=== PATIENT | male | born 1975 | race Caucasian/White ===

== ENCOUNTER 2017-12-14 16:16 | Emergency (ER) | payer SELFPAY ==
[2017-12-14 16:31] VITALS: BP 129/80; PULSE 78; RESP 20; TEMP 36.9; O2SAT 97; BMI 26.6
--- NOTE | 2017-12-14 16:46 | HMH.EDUTC ---
[facility] [place] Clinical Impression: URI (upper respiratory infection) Qualifiers: URI type: unspecified URI Qualified Code(s): J06.9 - Acute upper respiratory infection, unspecified Disposition: Home, Self-Care Condition on Discharge: Good Instructions: DI for Cough -- Adult, Sore Throat, Sinusitis, DI for Sinusitis Additional Instructions: * Monitor Temp. Tylenol and/or Ibuprofen as needed. ER if fever is no less than 101 despite alternating Tylenol and Ibuprofen * Encourage fluids, water, Gatorade, powerade, pedialyte if /toddler/or child * Warm salt water gargles for throat irritation *Warm fluids *Sore throat lozenges *Sleep elevated *humidifier or vaporizer Lots of rest Increase fluids, water, Gatorade, powerade *Flonase 2 sprays each nostril daily but may take 2-3 days to notice improvement with it Follow up IMMEDIATELY for new or worsening of symptoms OR no noticeable improvement over the next 48-72 hours. 911 immediately for any life threatening symptoms such as chest pain or difficulty breathing Prescriptions: Azithromycin [Z-Elia 250mg Tab] 250 mg PO UD DOSE PK #6 tab Benzonatate [Tessalon Perle 100mg Cap] 100 mg PO TID #30 cap Fluticasone Propionate [Flonase 50mcg nasal spray 16gm] 2 spr NS DAILY #1 bottle predniSONE [Prednisone 20mg Tab] 20 mg PO BID #10 tab Referrals: Markus Burton MD [Primary Care Provider] - As needed Time of Disposition: 16:58 Medical Decision Making - Medical Records Medical records reviewed: Yes: I reviewed the patient's medical records. - Alireza Inquiry Pt receiving controlled substance: No Alireza was queried for this patient: No Vital Signs: 12/14/17 16:31 Temperature 98.4 F Temperature Source Temporal Artery Scan Pulse Rate [Brachial] 78 Respiratory Rate 20 Blood Pressure [Right Arm] 129/80 Blood Pressure Mean [Right Arm] 96 Blood Pressure Position [Right Arm] Sitting 02 Sat by Pulse Oximetry 97 Oxygen Delivery Method Room Air [facility] [place] - General Stated complaint: Lung pain Time Seen by Provider: 12/14/17 16:46 Mode of Arrival: Ambulatory Source of Information: Patient Limitations: No Limitations Description of Symptoms (Recalled from Triage Doc. by RN): COUGH AND CONGSETION X 1 WEEK, CAUSING PAIN IN BACK HEENT Symptoms (Recalled from RN notes): No Resp Symptoms (Recalled from RN notes): Yes Skin Symptoms (Recalled from RN notes): No MS Symptoms (Recalled from RN notes): No Functional Status (Recalled from RN notes): NA - History of Present Illness Provider Complaint: Patient state that he has been having cough, nasal drainage and sore throat State that feels like something is running down the back of his throat State that when he lays down cough is worse State that he has been coughing so much that he feels like his lungs are sore - Related Data Previous Rx's Medication Instructions Recorded Azithromycin [Z-Elia 250mg Tab] 250 mg PO UD DOSE PK #6 tab 12/14/17 Benzonatate [Tessalon Perle 100mg 100 mg PO TID #30 cap 12/14/17 Cap] Fluticasone Propionate [Flonase 2 spr NS DAILY #1 bottle 12/14/17 50mcg nasal spray 16gm] predniSONE [Prednisone 20mg 20 mg PO BID #10 tab 12/14/17 Tab] Allergies Allergy/AdvReac Type Severity Reaction Status Date / Time No Known Allergies Allergy Verified 12/14/17 16:33 - Worker's Comp Is this a Worker's Comp case?: No [facility] History I have reviewed the patient's past medical history: Yes - Social History Smoking Status: Current every day smoker Tobacco Type: cigarettes Alcohol Intake: never - Psychiatric History Expresses thoughts of harming self/others: None Suicide Plan Description: No Plan ROS Obtained: Yes All systems reviewed & no additional complaints - Constitutional Constitutional: Denies fever(s) - ENT Ears, Nose, Mouth, and Throat: Reports sinus pain, Reports sinus pressure, Reports sore throat - Respiratory Respiratory: Yes chest congestion, Yes cough, No
--- NOTE | 2017-12-14 16:53 | ED_ITS ---
[facility] – [place] Disposition Clinical Impression: URI (upper respiratory infection) Qualifiers: URI type: unspecified URI Qualified Code(s): J06.9 - Acute upper respiratory infection, unspecified Disposition: Home, Self-Care Condition on Discharge: Good Instructions: DI for Cough -- Adult, Sore Throat, Sinusitis, DI for Sinusitis Additional Instructions: * Monitor Temp. Tylenol and/or Ibuprofen as needed. ER if fever is no less than 101 despite alternating Tylenol and Ibuprofen * Encourage fluids, water, Gatorade, powerade, pedialyte if /toddler/or child * Warm salt water gargles for throat irritation *Warm fluids *Sore throat lozenges *Sleep elevated *humidifier or vaporizer Lots of rest Increase fluids, water, Gatorade, powerade *Flonase 2 sprays each nostril daily but may take 2-3 days to notice improvement with it Follow up IMMEDIATELY for new or worsening of symptoms OR no noticeable improvement over the next 48-72 hours. 911 immediately for any life threatening symptoms such as chest pain or difficulty breathing Prescriptions: Azithromycin [Z-Elia 250mg Tab] 250 mg PO UD DOSE PK #6 tab Benzonatate [Tessalon Perle 100mg Cap] 100 mg PO TID #30 cap Fluticasone Propionate [Flonase 50mcg nasal spray 16gm] 2 spr NS DAILY #1 bottle predniSONE [Prednisone 20mg Tab] 20 mg PO BID #10 tab Referrals: Markus Burton MD [Primary Care Provider] - As needed Time of Disposition: 16:58 Medical Decision Making - Medical Records Medical records reviewed: Yes: I reviewed the patient's medical records. - Alireza Inquiry Pt receiving controlled substance: No lAireza was queried for this patient: No Vital Signs: 12/14/17 16:31 Temperature 98.4 F Temperature Source Temporal Artery Scan Pulse Rate [Brachial] 78 Respiratory Rate 20 Blood Pressure [Right Arm] 129/80 Blood Pressure Mean [Right Arm] 96 Blood Pressure Position [Right Arm] Sitting 02 Sat by Pulse Oximetry 97 Oxygen Delivery Method Room Air [facility] [place] HPI - General Stated complaint: Lung pain Time Seen by Provider: 12/14/17 16:46 Mode of Arrival: Ambulatory Source of Information: Patient Limitations: No Limitations Description of Symptoms (Recalled from Triage Doc. by RN): COUGH AND CONGSETION X 1 WEEK, CAUSING PAIN IN BACK HEENT Symptoms (Recalled from RN notes): No Resp Symptoms (Recalled from RN notes): Yes Skin Symptoms (Recalled from RN notes): No MS Symptoms (Recalled from RN notes): No Functional Status (Recalled from RN notes): NA - History of Present Illness Provider Complaint: Patient state that he has been having cough, nasal drainage and sore throat State that feels like something is running down the back of his throat State that when he lays down cough is worse State that he has been coughing so much that he feels like his lungs are sore - Related Data Previous Rx's Medication Instructions Recorded Azithromycin [Z-Elia 250mg Tab] 250 mg PO UD DOSE PK #6 tab 12/14/17 Benzonatate [Tessalon Perle 100mg 100 mg PO TID #30 cap 12/14/17 Cap] Fluticasone Propionate [Flonase 2 spr NS DAILY #1 bottle 12/14/17 50mcg nasal spray 16gm] predniSONE [Prednisone 20mg 20 mg PO BID #10 tab 12/14/17 Tab] Allergies Allergy/AdvReac Type Severity Reaction Status Date / Time No Known Allergies Allergy Verified 12/14/17 16:33 - Worker's Comp Is this a
[2017-12-14 16:56] VITALS: BP 129/80; PULSE 78; RESP 20; TEMP 36.9; O2SAT 97
== END 2017-12-14 16:59 | disposition home or self-care (01) ==
PROVIDERS: Emergency Provider Nurse Practitioner; Family Provider Family Medicine; PCP Family Medicine
DX: J06.9 Acute upper respiratory infection, unspecified (principal); F17.210 Nicotine dependence, cigarettes, uncomplicated
CPT/HCPCS: 99201

== ENCOUNTER → 2018-03-16 10:16 | Outpatient (POV) | payer SELFPAY ==
[2018-03-16 11:02] VITALS: BP 133/80; PULSE 56; RESP 18; O2SAT 98; BMI 27.6
--- NOTE | 2018-03-16 11:44 | HMH.PAINSOAP ---
[facility] Pain Management SOAP Note Subjective:: Patient is a 42-year-old white male who presents today for follow-up. Patient had 2 more epidural steroid injections last year and has done extremely well. Patient states he got 80-90% relief for 4 months. Patient then lost his insurance and was unable to return. Patient is interested in restarting this. Patient is not on any anticoagulation therapy. Patient is continuing a home stretching program. Patient tried gabapentin with side effects and discontinued it. He rates his pain an 8 out of 10 today. ROS General: no recent weight change, no fever, no sleep disturbances Respiratory: no cough, no shortness of air, no recurring pulmonary infections Cardiovascular/Peripheral Vascular: No chest pain, No palpitations, no edema, no shortness of breath. Gastrointestinal: no incontinence, normal bowel movements reported Genitourinary: no incontinence Musculoskeletal: Back pain, leg pain Psychiatric: normal mood/ affect Neurological: [denies weakness in extremities], [denies balance issues] Objective:: Physical Exam General: Alert and oriented x3, no acute distress, pleasant and cooperative, [on room air] Lungs: Resps E/U, Symmetrical chest expansion, Eyes: PERRL Musculoskeletal: Flexion and extension of lumbar spine somewhat guarded secondary to pain, deep tendon reflexes normal, strength in upper and lower extremities [5/5], antalgic gait noted, positive straight leg raise test bilaterally at 30? Neurological: speech clear, metal fabricating shop helper equal, no gross sensory deficits Assessment:: Degenerative disc disease of the lumbar spine with radiculopathy Plan:: We will schedule an L4-L5 lumbar epidural steroid injection. Given the efficacy of this in the past I believe it would be beneficial. Patient doing well with his home stretching exercises. Follow-up with the patient after the injection. This note was dictated using voice recognition software and may contain errors or omissions
--- NOTE | 2018-03-16 11:47 | P.CONS_ITS ---
[facility] Pain Management SOAP Note Subjective:: Patient is a 42-year-old white male who presents today for follow-up. Patient had 2 more epidural steroid injections last year and has done extremely well. Patient states he got 80-90% relief for 4 months. Patient then lost his insurance and was unable to return. Patient is interested in restarting this. Patient is not on any anticoagulation therapy. Patient is continuing a home stretching program. Patient tried gabapentin with side effects and discontinued it. He rates his pain an 8 out of 10 today. ROS General: no recent weight change, no fever, no sleep disturbances Respiratory: no cough, no shortness of air, no recurring pulmonary infections Cardiovascular/Peripheral Vascular: No chest pain, No palpitations, no edema, no shortness of breath. Gastrointestinal: no incontinence, normal bowel movements reported Genitourinary: no incontinence Musculoskeletal: Back pain, leg pain Psychiatric: normal mood/ affect Neurological: [denies weakness in extremities], [denies balance issues] Objective:: Physical Exam General: Alert and oriented x3, no acute distress, pleasant and cooperative, [on room air] Lungs: Resps E/U, Symmetrical chest expansion, Eyes: PERRL Musculoskeletal: Flexion and extension of lumbar spine somewhat guarded second shaji to pain, deep tendon reflexes normal, strength in upper and lower extremities [5/5], antalgic gait noted, positive straight leg raise test bilaterally at 30? Neurological: speech clear, web content manager equal, no gross sensory deficits Assessment:: Degenerative disc disease of the lumbar spine with radiculopathy Plan:: We will schedule an L4-L5 lumbar epidural steroid injection. Given the efficacy of this in the past I believe it would be beneficial. Patient doing well with his home stretching exercises. Follow-up with the patient after the injection. This note was dictated using voice recognition software and may contain errors or omissions
== END ==
PROVIDERS: Family Provider Family Medicine; PCP Family Medicine; Visit Provider Clinical Nurse Specialist Family Health
DX: M51.16 Intervertebral disc disorders with radiculopathy, lumbar region (principal)
CPT/HCPCS: 99213

== ENCOUNTER 2020-01-10 13:21 | Emergency (ER) | payer MEDICAID, SELFPAY ==
[2020-01-10 13:46] VITALS: BP 148/90; PULSE 73; RESP 20; TEMP 36.8; O2SAT 98; BMI 26.6
--- NOTE | 2020-01-10 14:08 | HMH.EDUTC ---
[facility] – [place] Disposition Clinical Impression: URI (upper respiratory infection) Qualifiers: URI type: unspecified URI Qualified Code(s): J06.9 - Acute upper respiratory infection, unspecified Disposition: Home, Self-Care Condition on Discharge: Good Instructions: Sore Throat, DI for Cough -- Adult, DI for Fever (Symptom) -- Adult, Preventing the Spread of Coronavirus Discharge Instructions Additional Instructions: *Monitor Temp, Over the counter Motrin or Tylenol as directed/as needed Tylenol every 4 hours and Motrin every 6 hours (as long as your family doctor has told you that you can take it) for fever or pain. and straight to ER if unable to lower temp less than 101.0 after medication given *Warm salt water gargles may help to soothe the throat *Throat Lozenges *Warm fluids like tea with honey may help to soothe the throat *Sleep elevated *Humidifier/Vaporizer *Flonase 2 sprays in each nostril daily but be aware that it may take 2-3 days before you notice improvement You was tested for COVID19, you was given a handout with instructions to follow..Please make sure to follow instructions to help prevent the spread of COVID19 Call back to the [facility] for your results of your COVID test they typically take 48 hours however may be back in 24 you may call the [facility] tomorrow after 1pm to see if your test results are back and if not Call on Follow up IMMEDIATELY for new or worsening symptoms or no Noticeable improvement over the next 48-72 hours. 911 for difficulty breathing or swallowing Prescriptions: Albuterol Sulfate [Proventil-HFA 90mcg/puff Inh] 1 - 2 puffs IH Q4HP PRN #1 inh PRN Reason: Shortness Of Breath Transmission Status: Received by [facility] # Fluticasone Propionate [Flonase 50mcg nasal spray 16gm] 1 - 2 spr NS DAILY #1 bottle Transmission Status: Received by [facility] # Benzonatate [Tessalon Perle 100mg Cap*] 100 mg PO TID PRN #15 cap PRN Reason: Cough Transmission Status: Received by [facility] # Azithromycin [Z-Elia 250mg Tab] 250 mg PO DIRECTED #6 tab Transmission Status: Received by [facility] #[id number] Referrals: Markus Burton MD [Primary Care Provider] - As needed Forms: Work/School Release Time of Disposition: 14:12 Medical Decision Making - Alireza Inquiry Pt receiving controlled substance: No Alireza was queried for this patient: No Vital Signs: 01/10/20 13:46 Temperature 98.2 F Temperature Source Oral Pulse Rate [Left Brachial] 73 Respiratory Rate 20 Blood Pressure [Left Arm] 148/90 H Blood Pressure Mean [Left Arm] 109 Blood Pressure Source [Left Arm] Automatic Cuff Blood Pressure Position [Left Arm] Sitting 02 Sat by Pulse Oximetry 98 Oxygen Delivery Method Room Air Orders (Tests/Meds): ORDERS Category Date Time Status SARS-CoV-2, [facility] Stat [facility] 01/10/20 13:50 Received [facility] [place] HPI - General Stated complaint: wants covid test Time Seen by Provider: 01/10/20 13:50 Mode of Arrival: Ambulatory Source of Information: Patient Limitations: No Limitations Description of Symptoms (Recalled from Triage Doc. by RN): C/O COUGH AND CONGESTION X 2 DAYS. 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 States that several of the factories he has been too recently had an outbreak of COVID19 States that he started having nasal congestion, sore throat and cough along with low grade fever so they made him come and get checked - Related Data Home Medications Medication Instructions Recorded Confirmed hydrOXYzine HCL [Hydroxyzine HCl] 25 mg PO HS 01/10/20 01/10/20 Previous Rx's Medication In
[2020-01-10 14:16] VITALS: BP 148/90; PULSE 73; RESP 20; TEMP 36.8; O2SAT 98
[2020-01-11 15:20] LABS: Covid-19 Nasal PCR Sendout Lex NOT DETECTED
== END 2020-01-10 14:24 | disposition home or self-care (01) ==
PROVIDERS: Emergency Provider Nurse Practitioner; PCP Family Medicine
DX: Z03.818 Encounter for observation for suspected exposure to other biological agents ruled out (principal); J06.9 Acute upper respiratory infection, unspecified; F17.210 Nicotine dependence, cigarettes, uncomplicated
CPT/HCPCS: 99201; U0004

== ENCOUNTER → 2020-03-06 11:30 | Outpatient (CLI) | payer MEDICAID, SELFPAY ==
[2020-03-06 16:49] LABS: Coronavirus 19 IgG Antibody Negative (Negative); Coronavirus 19 IgM Antibody Negative (Negative)
== END ==
PROVIDERS: Visit Provider Surgery
DX: Z01.818 Encounter for other preprocedural examination (principal); Z12.11 Encounter for screening for malignant neoplasm of colon
CPT/HCPCS: 36415; 86328

== ENCOUNTER 2020-03-07 06:25 | Day surgery (SDC) | payer MEDICAID, SELFPAY ==
[2020-03-05 14:40] VITALS: BMI 27.0
[2020-03-07 06:36] VITALS: BP 125/77; PULSE 76; RESP 18; TEMP 36.2; O2SAT 95
--- NOTE | 2020-03-07 07:06 | HMH.ANESCL ---
[facility] Anesthesia Checklist - Patient Identification Patient Identification: Arm Band, Verbal (Name & ) - Structural Data Admitted From: Home Planned Operative Procedure/s: colon Consent for Planned Operative Procedure(s) Verified: Yes Verified Documents: History and Physical - NPO Status Verified Time NPO: 00:00 - Additional verifications Patient : No Anesthesia Reactions: No Hx Blood Transfusions: No Blood Transfusion Reaction: No Cephalosporin Allergy: No Previous Colonoscopy: No - Cardiovascular Assessment Heart Sounds: S1 & S2 Pulse Strength: Baseline Pulse Rhythm: Regular Peripheral Edema: No - Airway Assessment C-Spine Mobility Assessed: Yes TMJ Mobility Assessed: Yes Dentition: Good Dentition - Neurological Assessment Level of Consciousness: Awake, Alert, Appropriate Hx Seizures: No Numbness or tingling in extremities: No - Anesthesia Plan Anesthesia Risk discussed: Yes Anesthesia Plan: Verified ASA Class: II Anesthesia Type: MAC [facility] History I have reviewed the patient's past medical history: Yes Medical History: Denies:: Cancer, Diabetes Mellitus Type 1, Diabetes Mellitus Type 2, MRSA, Seizures *Have you ever received a pneumonia vaccine?: No *Have you received a flu vaccine this season?: No Other Medical History: Reports: Sinus Problems Anesthesia experience/problems:: none Other Surgeries: Yes: Other Amputation: No Fractures: No - *Social History Last grade of school completed: Advanced degree Smoking Status: Current every day smoker Tobacco Type: cigarettes # Packs/Day (cigarettes): 1 Alcohol Intake: never Substance Use Type: denies use *Occupational Status:: employed Household Members: significant other *Travel in the last 8 weeks: None Family Hx:: Cancer, Coronary Artery Disease, Hypertension, Hyperlipidemia
[2020-03-07 07:07] VITALS: O2SAT 95
[2020-03-07 07:52] VITALS: BP 86/53; PULSE 63; RESP 18; TEMP 36.4; O2SAT 96
--- NOTE | 2020-03-07 07:53 | P.PCN_ITS ---
- Procedure: Date: 03/07/20 Patient Date of :: 1975 Procedure Performed:: Total colonoscopy to terminal ileum with polypectomy by biopsy and snare Indications:: Patient is a 44-year-old male referred by Dr. Burton for colonoscopy for rectal bleeding. He states that he had significant rectal bleeding prior to being seen in the office. He has no prior similar history. No family history of colon cancer. Subsequently he has had one episode of less bleeding. Denies any anorectal pain but does describe some lower abdominal burning. No family history of colon cancer but there are multiple cancers in his family. Subsequently he has had no additional bleeding. Performing Provider:: Suman Quach MD Referring Provider:: Maged Burton MD Sedation:: MAC sedation Procedure:: Patient was taken to the endoscopy procedure room. He was positioned in a lateral decubitus position. Adequate intravenous sedation was achieved. Digital examination was performed which revealed normal sphincter tone unremarkable. Variable stiffness Olympus colonoscope was inserted via the anus. Within the rectum retroflexion was performed which revealed some nonbleeding internal hemorrhoids. Colonoscope was advanced to the cecum without difficulty. Colonic preparation was excellent. Ileocecal valve and appendiceal orifice were clearly identified. Colonoscope was advanced a short distance into the terminal ileum which appeared grossly normal. Colonoscope was withdrawn through the colon with careful surveillance. There was a focal area of minor pi gmentation in the ascending colon which was biopsied to rule out early adenomatous polyp. Colonoscope was withdrawn through the remainder of the colon. In the descending colon there was an approximately 8 mm sessile polyp possibly consistent with serrated adenoma removed with cold cutting snare. In the descending colon there was a similar but smaller polyp removed with cold cutting snare. In the rectosigmoid region there were several hyperplastic appearing polyps removed with cold biopsy forceps. Retroflexion was performed once again in the rectum which revealed nonbleeding internal hemorrhoids. Colonoscope was withdrawn. Findings:: Acsending colon focal pigmentation, likely benign incidental, biopsied Distal transverse colon polyp, sessile, 8 mm, removed with cold cutting snare Descending colon polyp, 4 to 6 mm, sessile, removed with cold cutting snare Rectosigmoid polyp x3, likely hyperplastic, removed with cold biopsy forceps Nonbleeding internal hemorrhoids Recommendations:: Source of resolved rectal bleeding may have been an internal hemorrhoid etiology. This is resolved. Likely repeat colonoscopy 3 years pending the pathology findings on the polyps Complications:: None Estimated blood obtained (mL): 2
[2020-03-07 08:02] VITALS: BP 95/53; PULSE 56; RESP 18; O2SAT 92
[2020-03-07 08:13] VITALS: BP 99/69; PULSE 58; RESP 18; O2SAT 94
[2020-03-07 08:21] VITALS: BP 99/63; PULSE 66; RESP 18; O2SAT 96
== END 2020-03-07 08:22 | disposition home or self-care (01) ==
LOC: OUTP 06:27
PROVIDERS: PCP Family Medicine; Visit Provider Surgery
PROC: 0DJD8ZZ Inspection of Lower Intestinal Tract, Via Natural or Artificial Opening Endoscopic (ICD-10-PCS; CPT 45385; principal; 2020-03-07 07:30)
DX: Z80.9 Family history of malignant neoplasm, unspecified (principal); K63.5 Polyp of colon; K64.9 Unspecified hemorrhoids; K63.89 Other specified diseases of intestine; Z72.0 Tobacco use; Z82.49 Family history of ischemic heart disease and other diseases of the circulatory system; Z83.438 Family history of other disorder of lipoprotein metabolism and other lipidemia
CPT/HCPCS: 45385; 45380

== ENCOUNTER → 2020-04-18 16:24 | Outpatient (CLI) | payer MEDICAID, SELFPAY ==
--- NOTE | 2020-04-18 16:31 | XR_ITS ---
PROCEDURE: XR CHEST PORTABLE CLINICAL HISTORY: COVID OUT PATIENT TESTING COMPARISON: CR CXR CHEST(2 VIEWS-NOT PORTABLE) from 11/28/2015 CR CXR CHEST(2 VIEWS-NOT PORTABLE) from 07/24/2016 FINDINGS: The cardiomediastinal silhouette and pulmonary vascularity are within normal limits. The lungs are clear without infiltrates, suspicious nodules, or pleural effusions. Calcified granuloma is present in the right apex. No acute bony findings. IMPRESSION: No acute findings. Dictated by: Osito Self MD 04/18/2020 16:50 Osito Self MD in [place] 04/18/2020 16:50
[2020-04-18 17:30] LABS: Basophils # 0.1 K/mm3 (0-0.2); Basophils % 0.5 % (0.1-2.0); Eosinophils # 0.4 K/mm3 (0.0-0.4); Hemoglobin 16.4 g/dL (14.1-18.0); Lymphocytes # 3.8 K/mm3 (0.7-4.5); Lymphocytes % 34.7 % (10-50); Mean Corpuscular HGB Conc 34.3 g/dL (31.8-35.4); Mean Corpuscular Hemoglobin 30.8 pg (27.0-31.2); Mean Corpuscular Volume 89.8 fl (80-94); Mean Platelet Volume 6.9 fl (7.4-10.4); Monocytes # 0.7 K/mm3 (0.1-1.0); Monocytes % 6.2 % (1.7-9.3); Neutrophils # 5.9 K/mm3 (1.8-7.8); Neutrophils % 54.7 % (37.0-80.0); Platelet Count 398 K/mm3 (142-424); Red Blood Count 5.34 M/mm3 (4.60-6.20); Red Cell Distribution Width 13.2 % (11.5-17.5); White Blood Count 10.8 K/mm3 (4.8-10.8)
[2020-04-20 12:14] LABS: Covid-19 Nasal PCR Sendout Lex Not Detected
== END ==
PROVIDERS: PCP Family Medicine; Visit Provider Family Medicine
DX: Z03.818 Encounter for observation for suspected exposure to other biological agents ruled out (principal); J06.9 Acute upper respiratory infection, unspecified; R05 Cough
CPT/HCPCS: 36415; 71045; 85025; U0004

== ENCOUNTER → 2020-06-18 16:42 | Outpatient (CLI) | payer MEDICAID, SELFPAY ==
--- NOTE | 2020-06-18 16:48 | XR_ITS ---
PROCEDURE: XR CHEST PORTABLE CLINICAL HISTORY: COVID OUTPATIENT COMPARISON: CR CXR CHEST(2 VIEWS-NOT PORTABLE) from 11/28/2015 CR CXR CHEST(2 VIEWS-NOT PORTABLE) from 07/24/2016 CR XR CHEST PORTABLE from 04/18/2020 FINDINGS: The cardiomediastinal silhouette and pulmonary vascularity are within normal limits. The lungs are clear without infiltrates, suspicious nodules, or pleural effusions. No acute bony abnormalities. IMPRESSION: No acute findings. Dictated by: Dr. Talat Harmon MD 06/18/2020 21:04 Dr. Talat Harmon MD in [facility] 06/18/2020 21:04
[2020-06-18 17:45] LABS: Basophils # 0.1 K/mm3 (0-0.2); Basophils % 0.8 % (0.1-2.0); Eosinophils # 0.6 K/mm3 (0.0-0.4); Eosinophils % 5.5 % (0.1-12.0); Hematocrit 46.4 % (42.0-52.0); Hemoglobin 15.5 g/dL (14.1-18.0); Lymphocytes # 3.6 K/mm3 (0.7-4.5); Lymphocytes % 35.1 % (10-50); Mean Corpuscular HGB Conc 33.4 g/dL (31.8-35.4); Mean Corpuscular Hemoglobin 31.1 pg (27.0-31.2); Mean Platelet Volume 6.9 fl (7.4-10.4); Monocytes # 0.5 K/mm3 (0.1-1.0); Monocytes % 4.7 % (1.7-9.3); Neutrophils # 5.6 K/mm3 (1.8-7.8); Neutrophils % 53.8 % (37.0-80.0); Platelet Count 367 K/mm3 (142-424); Red Blood Count 4.99 M/mm3 (4.60-6.20); Red Cell Distribution Width 13.8 % (11.5-17.5); White Blood Count 10.4 K/mm3 (4.8-10.8)
[2020-06-20 10:11] LABS: Covid-19 Nasal PCR Sendout P&C Negative
== END ==
PROVIDERS: PCP Nurse Practitioner; Visit Provider Nurse Practitioner
DX: Z03.818 Encounter for observation for suspected exposure to other biological agents ruled out (principal)
CPT/HCPCS: 36415; 71045; 85025; 87275; 87276; U0004

== ENCOUNTER 2020-11-23 14:44 | Emergency (ER) | payer OTHER, SELFPAY ==
[2020-11-23 14:45] VITALS: BP 139/80; PULSE 79; RESP 20; TEMP 37.1; O2SAT 96; BMI 25.8
--- NOTE | 2020-11-23 15:24 | HMH.EDUTC ---
[facility] [place] Clinical Impression: Strep throat, Bronchitis Disposition: Home, Self-Care Condition on Discharge: Good Instructions: Acute Bronchitis, DI for Acute Bronchitis Additional Instructions: Start antibiotic today. Be sure to complete entire prescription even if feeling better Tylenol and ibuprofen as needed for pain or fever Humidifier/vaporizer/hot steamy shower Follow-up with primary care tomorrow. Follow-up immediately in the ER of the [facility] for new or worsening symptoms or no noticeable improvement over the next 48-72 hours. Stop smoking Inhaler every 4-6 hours as needed. Should help open airways improved cough, wheezing, shortness of breath Start steroids today. Helps with inflammation therefore coughing and wheezing. Follow directions on package. Patient states they have taken them before. Prescriptions: Fluticasone Propionate [Flonase 50mcg nasal spray 16gm] 1 spr NS DAILY 14 Days #1 bottle Transmission Status: Pending to [facility] predniSONE [Prednisone 20mg Tab] 20 mg PO BID #10 tab Transmission Status: Pending to [facility] Azithromycin [Zithromax 250mg tab] 250 mg PO DIRECTED #6 tab Transmission Status: Pending to [facility] Referrals: Markus Burton MD [Primary Care Provider] - Time of Disposition: 15:29 Medical Decision Making - Alireza Inquiry Pt receiving controlled substance: No [facility] [place]PI - General Chief complaint: [facility] Stated complaint: sore throat, soa, ear pressure Time Seen by Provider: 11/23/20 15:25 Mode of Arrival: Ambulatory Limitations: No Limitations - History of Present Illness Provider Complaint: 45 yr old male presents for cough, wheezing, sore throat and nasal congestion. pt states girlfriend dx with strep. pt states breathing has been going on for months. pt states she had appointment with dr olmos office and was told they do not take his insurance and he could not self pay. - Related Data Home Medications Medication Instructions Recorded Confirmed hydrOXYzine HCL [Hydroxyzine HCl] 25 mg PO HS 01/10/20 03/07/20 Previous Rx's Medication Instructions Recorded Albuterol Sulfate [Proventil-HFA 1 - 2 puffs IH Q4HP PRN #1 inh 01/10/20 90mcg/puff Inh] Azithromycin [Zithromax 250mg 250 mg PO DIRECTED #6 tab 11/23/20 tab] Fluticasone Propionate [Flonase 1 spr NS DAILY 14 Days #1 bottle 11/23/20 50mcg nasal spray 16gm] predniSONE [Prednisone 20mg 20 mg PO BID #10 tab 11/23/20 Tab] Allergies Allergy/AdvReac Type Severity Reaction Status Date / Time No Known Allergies Allergy Verified 04/02/20 13:46 [facility] History - Hepatitis A Screen Attestation statement:: This patient has been screened for Hepatitis A risk factors. I have reviewed the patient's past medical history: Yes Medical History: Denies:: Cancer, Diabetes Mellitus Type 1, Diabetes Mellitus Type 2, MRSA, Seizures Other Medical History: Reports: Sinus Problems. Denies: Blood Transfusion Reaction Other Surgeries: Yes: Colonoscopy, Other Amputation: No Fractures: No Comment: RIGHT ARM - Social History Smoking Status: Current every day smoker Tobacco Type: cigarettes # Packs/Day (cigarettes): 1 Alcohol Intake: never Substance Use Type: denies use Occupational Status: employed Household Members: significant other Family Hx:: Cancer, Coronary Artery Disease, Hypertension, Hyperlipidemia ROS Obtained: Yes Systems reviewed as appropriate & no additional complaints - Constitutional Constitutional: Reports system reviewed and no additional complaints, except as docu, Denies body ache, Denies fever(s) - Eyes Eyes: Reports system reviewed and no additional complaints, except as docu, Denies blurry vision - ENT Ears, Nose, Mouth, and Throat: Reports system reviewed and no additional complaints, except as docu, Reports nasal congestion, Denies nasal discharge, Reports sore throat - Cardiovascular
[2020-11-23 15:35] VITALS: BP 139/80; PULSE 79; RESP 20; TEMP 37.1; O2SAT 96
[2020-11-23 21:48] LABS: UTC Strep Screen (Rapid) Positive (Negative)
== END 2020-11-23 15:40 | disposition home or self-care (01) ==
PROVIDERS: Emergency Provider Nurse Practitioner Family; PCP Family Medicine
DX: J02.0 Streptococcal pharyngitis (principal); J20.9 Acute bronchitis, unspecified
CPT/HCPCS: 87880; 99202; G0463

== ENCOUNTER 2021-03-18 17:43 | Emergency (ER) | payer OTHER, SELFPAY ==
--- NOTE | 2021-03-18 18:03 | XR_ITS ---
PROCEDURE INFORMATION: Exam: XR Thoracic Spine Exam date and time: 03/18/2021 6:03 PM Age: 45 years old Clinical indication: Injury or trauma; Work related; Blunt trauma (contusions or hematomas); Injury date: 03/08/21; Injury details: Patient fell onto his back; . Pain when breathing and in back since fall; Additional info: Fall on 03/08 upper back pain TECHNIQUE: Imaging protocol: XR of the thoracic spine. Views: 3 views. COMPARISON: CR XR CHEST 2V 03/18/2021 6:07 PM FINDINGS: Bones/joints: Normal. No acute fracture. Normal alignment. Soft tissues: Unremarkable. IMPRESSION: No acute findings.
--- NOTE | 2021-03-18 18:03 | XR_ITS ---
PROCEDURE INFORMATION: Exam: XR Chest Exam date and time: 03/18/2021 6:03 PM Age: 45 years old Clinical indication: Injury or trauma; Work related; Blunt trauma (contusions or hematomas); Injury date: 03/08/21; Injury details: Patient fell onto his back; . Pain when breathing and in back since fall; . Smokers cough; Additional info: Fall, pain with breathing TECHNIQUE: Imaging protocol: XR of the chest. Views: 2 views. COMPARISON: CR XR CHEST PORTABLE 06/18/2020 5:10 PM FINDINGS: Lungs: Unremarkable. No consolidation. Pleural spaces: Unremarkable. No pleural effusion. No pneumothorax. Heart/Mediastinum: Unremarkable. No cardiomegaly. Bones/joints: Unremarkable. IMPRESSION: No acute findings.
[2021-03-18 18:05] VITALS: BP 140/90; PULSE 79; RESP 18; TEMP 37; O2SAT 97; BMI 26.6
--- NOTE | 2021-03-18 18:59 | HMH.EDUTC ---
[facility] [place] Clinical Impression: Muscle spasm Back pain Qualifiers: Back pain location: thoracic back pain Chronicity: unspecified Back pain laterality: midline Qualified Code(s): M54.6 - Pain in thoracic spine Disposition: Home, Self-Care Condition on Discharge: Good Instructions: Cyclobenzaprine, Etodolac, DI for Thoracic Back Pain, DI for Muscle Spasm Additional Instructions: *Etodolac every 8 hours with meal as needed for pain/inflammation *Remember you had a Toradol shot in the clinic today, which is similar to Etodolac so do not start until tomorrow 03/19/21 *Not additional anti-inflammatory like ibuprofen motrin, aleve, advil with the above amount of Etodolac. You can still take Tylenol every 4 hours as needed if you need something else for pain *Ice 20 minutes every 2 hours for the first 48 hours after the initial injury followed by moist heat every 20 minutes 3-4 times a day to affected area *Muscle relaxer every 8 hours as needed for muscle spasms but remember, it WILL cause drowsiness You cannot take it and drive, operate machinery or care for small children. *Keep this area active, no movement leads to more stiffness, However take it easy and avoid heavy lifting pushing or pulling *Follow up with you family doctor if no improvement for further treatment Over the counter muscle rubs and patches may help with pain and tightness Return if needed Straight to ER if any life threatening symptoms Prescriptions: Etodolac 200 mg PO Q8HP PRN #20 cap PRN Reason: Moderate Pain Transmission Status: Received by [facility] Cyclobenzaprine HCl [Flexeril 10mg tablet] 10 mg PO TID PRN 30 Days #90 tab PRN Reason: Muscle Spasm Transmission Status: Received by [facility] Referrals: Woodrow Ge MD [Primary Care Provider] - As needed Time of Disposition: 19:11 Medical Decision Making - Alireza Inquiry Pt receiving controlled substance: No Alireza was queried for this patient: No Vital Signs: 03/18/21 18:05 03/18/21 19:16 Temperature 98.6 F 98.6 F Temperature Source Oral Pulse Rate 79 Pulse Rate [Right Brachial] 79 Respiratory Rate 18 18 Blood Pressure 140/90 Blood Pressure [Right Arm] 140/90 Blood Pressure Mean [Right Arm] 106 Blood Pressure Source [Right Arm] Automatic Cuff Blood Pressure Position [Right Arm] Sitting 02 Sat by Pulse Oximetry 97 Oxygen Delivery Method Room Air Orders (Tests/Meds): ED MEDICATIONS Discontinued Medications Generic Name Dose Route Start Last Admin Trade Name Cuate PRN Reason Stop Dose Admin Ketorolac Tromethamine 60 mg 03/18/21 19:03 03/18/21 19:14 Ketorolac 60mg/2ml Vial IM 03/18/21 19:04 60 mg ONCE ONE Administration - Radiology Data #1 Image(s): T-Spine Image Reviewed: Yes I have reviewed radiologist's interpretation IMPRESSION: No acute findings. #2 Image(s): Chest Image Reviewed: Yes I have reviewed radiologist's interpretation IMPRESSION: No acute findings. [facility] [place] - General Stated complaint: WC 03/08@1430 injured back,both arms Time Seen by Provider: 03/18/21 18:59 Mode of Arrival: Ambulatory Source of Information: Patient Limitations: No Limitations Description of Symptoms (Recalled from Triage Doc. by RN): PATIENT C/O PAIN TO BILATERAL SHOULDER AND UPPER BACK. STATES HE FELL BACKWARDS ONTO CONCRETE ON 03/08 HEENT Symptoms (Recalled from RN notes): No Resp Symptoms (Recalled from RN notes): No Skin Symptoms (Recalled from RN notes): No MS Symptoms (Recalled from RN notes): Yes Functional Status (Recalled from RN notes): WNL - History of Present Illness Provider Complaint: Patient states that he was at work on 03/08/21 when the ramp was wet and he slipped and fell straight back onto his back States that he has previous back problems and he has been having pain on his spine area between his shoulder blades and feels like he is having muscle spasms again in his shoulder blade area and uppe
[2021-03-18 19:16] VITALS: BP 140/90; PULSE 79; RESP 18; TEMP 37; O2SAT 97
== END 2021-03-18 19:20 | disposition home or self-care (01) ==
PROVIDERS: Emergency Provider Nurse Practitioner; PCP Family Medicine
DX: M62.838 Other muscle spasm (principal); M54.6 Pain in thoracic spine; W01.0XXA Fall on same level from slipping, tripping and stumbling without subsequent striking against object, initial encounter; Y92.69 Other specified industrial and construction area as the place of occurrence of the external cause; Y99.0 Civilian activity done for income or pay
CPT/HCPCS: 71046; 72072; 96372; 99202; G0463

== ENCOUNTER 2022-12-31 17:20 | Emergency (ER) | payer SELFPAY ==
[2022-12-31 17:30] VITALS: BP 134/83; PULSE 80; RESP 20; TEMP 37.3; O2SAT 96; BMI 26.6
[2022-12-31 17:40] VITALS: BP 134/83; PULSE 80; RESP 20; TEMP 37.3; O2SAT 96
--- NOTE | 2022-12-31 17:40 | EXP.UTC ---
Discharge Plan Disposition Patient Disposition: Home, Self-Care Condition: Good Prescriptions Prescriptions: New azithromycin [Zithromax Z-Elia] 250 mg tablet See Rx Instructions .ROUTE .COMPLEX 5 Days Qty: 6 0RF Rx Instructions: For 250 mg dose pack: take 500 mg today (day 1), then 250 mg for 4 days (days 2-5) prednisone [prednisone] 20 mg tablet 20 mg PO BID 5 Days Qty: 10 0RF benzonatate 100 mg capsule 100 mg PO TID PRN (Reason: cough) Qty: 30 0RF guaifenesin [Mucinex] 600 mg tablet extended release 12hr 1,200 mg PO BID PRN (Reason: cough) Qty: 20 0RF albuterol sulfate [Proventil HFA] 90 mcg/actuation HFA aerosol inhaler 1 inh inhalation Q6H PRN (Reason: shortness of breath or wheezing) Qty: 8.5 0RF No Action quetiapine 50 mg tablet 50 mg PO HS Patient Comments: TAKE 1 TABLET BY MOUTH IN THE EVENING Referrals Follow up/Referrals: Woodrow Ge MD [Primary Care Provider] - See instructions Activity Restrictions/Add. Instructions Additional Instructions/Restrictions: Start antibiotic today. Be sure to complete entire prescription even if feeling better Monitor temp. Tylenol every 4 hours as needed and / or ibuprofen every 6 hours as needed ( As long as your primary care physician has told you that it ok to take both. For fever/aches/pains ER if no less than 101 despite Tylenol or Motrin Humidifier/vaporizer or hot steamy shower Inhaler every 4-6 hours as needed like we discussed. If unsure how to use it, ask pharmacist to demonstrate how. Should help open airways and improve cough, wheezing, and shortness of breath Mucinex during the day for your cough and cough suppressant only at night. Be sure to drink lots of water. *Tessalon Perles will not cause drowsiness but use at bedtime to help stop cough so that you may get some rest. *Start steroid today. Helps with inflammation therefore, cough and wheezing. Follow directions on the package. Reviewed side effects. Patient reports taking them before. Follow up IMMEDIATELY for new or worsening of symptoms OR no noticeable improvement over the next 48-72 hours. 911 immediately for any life threatening symptoms such as chest pain or difficulty breathing Clinical Impressions Clinical Impression: Bronchitis Sinusitis Qualifiers: Sinusitis location: unspecified location Chronicity: unspecified Qualified Code(s): J32.9 - Chronic sinusitis, unspecified Instructions Patient Instructions: DI for Sinusitis, Acute Bronchitis Discharge ED Provider: Bisi Flanagan [facility] [place] HPI General Stated complaint: exposed to covid, SOA, Painful to breathe Mode of Arrival: Ambulatory Source of Information: Patient Limitations: No Limitations Time Seen by Provider: 12/31/22 17:40 Description of Symptoms (Recalled from Triage Doc. by RN): PATIENT C/O PAINFUL BREATHING AND SOA THAT STARTED YESTERDAY AFTERNOON AND HAS GOTTEN WORSE. EXPOSED TO COVID APPROX 12/20/22 HEENT Symptoms (Recalled from RN notes): No Resp Symptoms (Recalled from RN notes): Yes Skin Symptoms (Recalled from RN notes): No MS Symptoms (Recalled from RN notes): No Functional Status (Recalled from RN notes): WNL History of Present Illness Provider Complaint: Patient states that he was around some people around the first of December that has since tested positive for COVID and he was wanting to get tested to make sure that he doesnt have it States that he has been having sinus congestion drainage in the back of his throat that is making his throat feel raw States that it lowe in his chest when he takes a deep breath and at times coughing up some mucous States that earlier today after a coughing spell he felt a little SOA so he came in to get checked Related Data Home Medications Medication Instructions Recorded Confirmed quetiapine 50 mg tablet 50 mg PO HS Insomnia 12/31/22 12/31/22 Previous Rx's Medication Instructions Recorded josé
== END 2022-12-31 17:59 | disposition home or self-care (01) ==
PROVIDERS: Emergency Provider Nurse Practitioner; PCP Family Medicine
DX: J20.9 Acute bronchitis, unspecified (principal); F17.210 Nicotine dependence, cigarettes, uncomplicated; Z20.822 Contact with and (suspected) exposure to COVID-19
CPT/HCPCS: 99212; 99214; G0463